=== PATIENT | male | born 1975 | race Caucasian/White ===

== ENCOUNTER 2017-07-08 16:35 | Emergency (ER) | payer MEDICAID ==
[2017-07-08] MEDS: ACETAMINOPHEN 325 MG TAB PO (19:40)
[2017-07-08] MEDS: DIPHTH/TET/ACEL PERTUSS (ADULT) 0.5 ML VIAL IM (19:41)
== END 2017-07-08 21:59 | disposition home or self-care (01) ==
LOC: FTE 16:35
DX: S62.667B Nondisplaced fracture of distal phalanx of left little finger, initial encounter for open fracture (principal); I10 Essential (primary) hypertension; W26.0XXA Contact with knife, initial encounter; Y92.810 Car as the place of occurrence of the external cause; Z23 Encounter for immunization; Z87.891 Personal history of nicotine dependence
CPT/HCPCS: 12001; 73130-LT; 90471; 90715; 99283-25

== ENCOUNTER 2017-07-16 06:18 | Emergency (ER) | payer MEDICAID | END 2017-07-16 06:55 | disposition home or self-care (01) | LOC: FTE 06:18 | DX: Z48.02 Encounter for removal of sutures (principal); I10 Essential (primary) hypertension | CPT/HCPCS: 99281 ==